=== PATIENT | male | born 1995 | race Caucasian/White ===

== ENCOUNTER 2017-03-06 19:13 | Emergency (ER) | payer SELFPAY ==
[~2017-03-06] VITALS: Ht 177.8 cm; Wt 83.9 kg
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
--- NOTE | 2017-03-06 21:16 | NUR ---
PT HAS COMPLAINTS THAT HE'S BEEN WAITING AND HAS NOT BEEN SEEN BY MD YET. EDUCATION PROVIDED. MD NOTIFIED
--- NOTE | 2017-03-06 21:28 | NUR ---
TARIQ WONG at bedside for patient evaluation.
--- NOTE | 2017-03-06 21:31 | NUR ---
ER MD at bedside for patient evaluation
--- NOTE | 2017-03-06 22:35 | NUR ---
Patient discharged to home in stable conditon. Written and verbal after care instructions given. Patient verbalizes understanding of instructions. Ambulated from Er with stable gait.
[2017-03-06 22:36] VITALS: BP 127/80
== END 2017-03-06 22:37 | disposition home or self-care (01) ==
LOC: ER 19:14
DX: S10.93XA Contusion of unspecified part of neck, initial encounter (principal); S00.93XA Contusion of unspecified part of head, initial encounter; S00.31XA Abrasion of nose, initial encounter; F07.81 Postconcussional syndrome; X58.XXXA Exposure to other specified factors, initial encounter; Y93.89 Activity, other specified; Y92.89 Other specified places as the place of occurrence of the external cause; Y99.8 Other external cause status
CPT/HCPCS: A4663